=== PATIENT | male | born 1950 | race Caucasian/White ===

== ENCOUNTER 2016-09-08 06:17 | Inpatient (IN) | payer BC, OTHER ==
[2016-09-08] VITALS (7 sets, daily range): BP systolic 96–121; BP diastolic 65–75; PULSE 96–104; TEMP 36.7–37.4; O2SAT 92–97; Ht 177.8 cm; Wt 76.9 kg
[~2016-09-08] VITALS: Ht 177.8 cm; Wt 76.9 kg
[~2016-09-08 06:17] MED LIST: IBUP-103 PO; SIMV40TA2 PO; TIOTCAP INH
[2016-09-08] MEDS ORDERED: SODIUM CHLORIDE 0.9% 1000ML 1,000 ML IV STA ×2 (06:38→09:48)
[2016-09-08] MEDS ORDERED: FENTANYL CITRATE INJ 50 MCG/1 ML 2 ML VIAL IV STA (06:38)
[2016-09-08] MEDS ORDERED: LABETALOL HCL IV 5 MG/ML 20ML IV STA (06:38)
[2016-09-08] MEDS ORDERED: ONDANSETRON INJ 2 MG/ML 2 ML VIAL ONE ×3 (06:42→12:00)
[2016-09-08] MEDS ORDERED: OPTIRAY 320 IV PRN (06:45)
--- NOTE | 2016-09-08 06:52 | EMERGENCY ROOM VISIT NOTE ---
History Report prepared by Jami: Louis Lambert Under the Supervision of: Dr. Delma Borden M.D. First contact with patient: 06:37 Chief Complaint: ABDOMINAL PAIN Stated Complaint: ABDOMINAL PAIN Nursing Triage Summary: pt states he began to get abdominal pain that began this morning. reports decreased appetite and indigestion and diarrhea yesterday. pt denies urinary symptoms. pt restless in bed. states he is having a difficult time taking a deep breath due to pain. pt is alert and oriented x4. right side abdomen tender to touch. bowel sounds WNL. hx of AAA, dx last february. History of Present Illness The patient is a 66 year old male who presents to the Emergency Room with complaints of persistent abdominal pain that started 2 days ago. The patient notes that the pain worsened significantly today. Currently he rates his discomfort as a 9.5 out of 10 in severity but notes it is starting to subside slightly. Two days ago, the patient had a decreased appetite and diarrhea. The patient hasn't eaten since yesterday afternoon and did not eat much the last time he ate. He has been able to drink fluids including adis nasir, water, and coffee. He also complains of nausea, dry heaves and gas. The patient was diagnosed with an abdominal aorta aneurysm 6 months ago. It is being followed and watched and per patient has been holding steady and stable since the diagnosis. Source of History: patient Onset: 2 days ago Position: abdomen Symptom Intensity: 9.5/10 in severity Timing: worsening, other (persistent) Associated Symptoms: + diarrhea, + nausea, No hematochezia, No vomiting Note: Other associated symptoms: decreased appetite, dry heaves, gas Review of Systems See HPI for pertinent positives & negatives. A total of 10 systems reviewed and were otherwise negative. Past Medical & Surgical Medical Problems: (1) Aortic aneurysm (2) Perforation of duodenal ulcer Family History Cancer Kidney stone Social History Smoking Status: Current Every Day Smoker Marital Status: Housing Status: lives with significant other Occupation Status: employed Current/Historical Medications Scheduled Acetaminophen/Diphenhydramine (Tylenol Pm), 1 TAB PO HS Simvastatin (Zocor), 40 MG PO QPM Allergies Coded Allergies: No Known Allergies (Verified , 09/08/16) Physical Exam Vital Signs Date Time Temp Pulse Resp B/P Pulse Ox O2 Delivery O2 Flow Rate FiO2 09/08/16 12:33 97 12 2/1/17 12:33 98 12 174/104 100 09/08/16 12:31 172/90 09/08/16 12:28 91 16 09/08/16 12:28 36.5 106 16 178/105 98 Mask 12 09/08/16 12:28 92 16 172/100 99 09/08/16 10:45 36.7 104 18 162/79 90 Room Air 09/08/16 10:04 94 Room Air 09/08/16 10:02 97 22 180/97 94 Room Air 09/08/16 09:41 96 26 177/94 92 Room Air 09/08/16 09:24 102 09/08/16 09:17 88 18 153/77 94 Room Air 09/08/16 08:20 78 20 165/90 93 Room Air 09/08/16 07:56 81 26 180/102 96 Room Air 09/08/16 07:20 83 167/90 96 Room Air 09/08/16 07:06 88 18 188/105 97 Room Air 09/08/16 07:00 85 18 179/102 97 Room Air 201/94 09/08/16 06:53 163/85 09/08/16 06:41 85 09/08/16 06:22 36.5 99 22 155/87 98 Room Air Physical Exam Vital signs reviewed. General: Generally well-appearing in significant discomfort. HEENT: No scleral icterus, PERRLA, neck supple. Atraumatic. Cardiovascular: Notedly hypertensive, no extra sounds. Pulmonary: Clear to auscultation bilaterally, normal work of breathing. Abdomen: Diffusely tender with guarding, more focally tender to RUQ, nondistended, positive bowel sounds. Musculoskeletal: Atraumatic, no peripheral edema. Neurologic: Patient awake alert and oriented x 3 Skin: Warm, dry, no rash Medical Decision & Procedures ER Provider Diagnostic Interpretation: ADDENDUM Three-dimensional review of the images with the assistance of 2 additional radiologist suggest moderate gastric bubble thickening primarily in the region of the antrum and possibly components of the duodenal sweep. There is also suggestion of a possible small diverticulum transaxial image 163 involving the proximal transverse colon. Considerations include the possibility of a perforated colonic diverticulum versus perforated gastric and/or duodenal ulceration. Free air is felt to be present. Surgical consultation is suggested. IMPRESSION: Review of the images initially by 3 radiologist suggests the possibility of a perforated colonic diverticulum versus a potential gastric perforation of uncertain location. Surgical consultation is suggested. No further imaging is felt to be warranted Electronically signed by: Gerard Mckeon M.D. 09/08/2016 9:54 AM Dictated Date/Time: 09/08/2016 9:[address] results as stated below per my review and radiologist interpretation: ADDENDUM Review of the scan progressive Dr. Borden again shows a stable aneurysmal dilatation of the abdominal aorta. Bowel pattern is again nonobstructive. Initial concern for potential trace amount of free air anterior to the right hepatic lobe appears to be secondary to interposed transverse colonic loops based on three-dimensional evaluation. There is again no evidence pneumatosis. Gallbladder is negative for distention but there is suggestion of a trace amount of mild gallbladder wall thickening. This is most likely technical based on respiratory motion, although right upper quadrant ultrasonography is suggested as follow-up in several note is made of a trace amount of free fluid within the pelvic cul-de-sac. If the Patient remains symptomatic, repeat scanning with oral contrast would be helpful for definitive exclusion of any possibility of extraluminal micro air pockets of the upper abdomen Electronically signed by: Gerard Mckeon M.D. 09/08/2016 7:41 AM Dictated Date/Time: 09/08/2016 7:[address] angiogram abdomen and pelvis ANGIO ABD/PELVIS WITH CONTRAST CLINICAL HISTORY: Abdominal and pelvic pain TECHNIQUE: Transaxial acquisition with multi axial reformatted images. COMPARISON STUDY: Ultrasound abdominal aorta dated 07/23/2015 FINDINGS: Atelectasis right base. Lung bases otherwise are clear. Small fixed lateral hernia. Aneurysmal dilatation of the infrarenal aspect of the abdominal aorta extending to the aortic bifurcation. This has a maximum anterior posterior dimension of 4.0 cm. It is partially thrombus filled with true luminal dimension of 2.5 cm. There is no evidence for rupture. No abnormal periaortic fluid pockets are identified. Liver spleen and pancreas remain unremarkable. Kidneys negative for calcification or hydronephrosis. Bowel pattern overall is considered nonobstructive. There is considerable atherosclerotic change of the iliac arterial vasculature. No significant aneurysmal distention is present. Bladder is midline. There is again no evidence for an obstructing urinary tract calculus. Bowel pattern overall is nonobstructive. There is no evidence for pneumatosis. IMPRESSION: Partially thrombosed 4 cm aneurysm abdominal aorta. 2. True luminal dimension is 2.7 cm. 3. No evidence for dissection. 4. Nonobstructive bowel pattern. Electronically signed by: Gerard Mckeon M.D. 09/08/2016 7:22 AM Dictated Date/Time: 09/08/2016 7:12 AM Right upper quadrant ultrasound GALLBLADDER-ABD LIMITED CLINICAL HISTORY: upper abd pain, GB pain. Nausea. TECHNIQUE: Ultrasound COMPARISON STUDY: CT study same date FINDINGS: Gallbladder is normal. There are no shadowing gallstones. Common mild duct is 4 mm. Right kidney is negative for hydronephrosis. IMPRESSION: Negative study. Normal gallbladder. Electronically signed by: Gerard Mckeon M.D. 09/08/2016 8:57 AM Dictated Date/Time: 09/08/2016 8:46 AM CHEST ONE VIEW PORTABLE HISTORY: Generalized abdominal pain. Short of breath. COMPARISON: Abdomen and pelvis CT 09/08/2016. FINDINGS: There is confirmation of a pneumoperitoneum. The lungs are clear. The heart is normal in size. No pleural effusions. No pneumothorax. IMPRESSION: Confirmation of the pneumoperitoneum. This was discussed with Dr. Borden at 9:50 AM on 09/08/2016. Electronically signed by: Deven Hernandez M.D. 09/08/2016 9:51 AM Dictated Date/Time: 09/08/2016 9:43 AM Laboratory Results Test 09/08/16 06:39 09/08/16 06:40 09/08/16 06:47 09/08/16 07:54 Bedside Hemoglobin 16.0 g/dl (14.0-18.0) Bedside Hematocrit 47 % (42-52) Bedside Sodium 137 mEq/L (135-144) Bedside Potassium 3.9 mEq/L (3.3-5.0) Bedside Chloride 99 mEq/L (101-112) Bedside Total CO2 23 mEq/l (24-31) Bedside Blood Urea Nitrogen 16 mg/dl (7-18) Bedside Creatinine 1.1 mg/dl (0.6-1.3) Bedside Glucose (other) 142 mg/dl (70-99) Bedside Ionized Calcium (Yinka) 1.12 mmol/l (1.12-1.32) Est Creatinine Clear Calc Drug Dose 54.3 ml/min Magnesium Level 1.9 mg/dl (1.8-2.4) Direct Bilirubin 0.2 mg/dl (0-0.2) Lipase 77 U/L (73-393) Bedside Troponin I 0.010 ng/ml (0-0.045) Urine Color YELLOW Urine Appearance CLEAR (CLEAR) Urine pH 6.0 (4.5-7.5) Urine Specific [place] > 1.045 (1.000-1.030) Urine Protein NEG (NEG) Urine Glucose (UA) NEG (NEG) Urine Ketones 1+ (NEG) Urine Occult Blood 2+ (NEG) Urine Nitrite NEG (NEG) Urine Bilirubin NEG (NEG) Urine Urobilinogen NEG (NEG) Urine Leukocyte Esterase NEG (NEG) Urine WBC (Auto) 1-5 /hpf (0-5) Urine RBC (Auto) 5-10 /hpf (0-4) Urine Hyaline Casts (Auto) 1-5 /lpf (0-5) Urine Epithelial Cells (Auto) 5-10 /lpf (0-5) Urine Bacteria (Auto) NEG (NEG) Bedside Lactic Acid Venous 1.80 mmol/L (0.90-1.70) Laboratory results per my review. Medications Administered Medications (Trade) Dose Ordered Sig/Kamille Route Start Time Stop Time Status Last Admin Dose Admin Labetalol HCl (Normodyne IV) 10 mg NOW STAT IV 09/08/16 06:38 09/08/16 06:41 DC 09/08/16 06:52 10 MG Fentanyl Citrate 100 mcg 100 mcg NOW STAT IV 09/08/16 06:38 09/08/16 06:41 DC 09/08/16 06:48 100 MCG Sodium Chloride (Nss 1000ml) 1,000 ml @ 125 mls/hr Q8H STAT IV 09/08/16 06:38 09/08/16 14:37 DC 09/08/16 06:52 125 MLS/HR Ondansetron HCl (Zofran Inj) 4 mg STK-MED ONCE .ROUTE 09/08/16 06:42 09/08/16 06:43 DC 09/08/16 06:45 4 MG Hydromorphone HCl (Dilaudid Inj) 1 mg NOW STAT IV 09/08/16 07:45 09/08/16 07:47 DC 09/08/16 07:54 1 MG Hydromorphone HCl (Dilaudid Inj) 1 mg NOW STAT IV 09/08/16 09:07 09/08/16 09:09 DC 09/08/16 09:15 1 MG Piperacillin Sod/ Tazobactam Sod 4.5 gm 4.5 gm NOW STAT IV 09/08/16 09:48 09/08/16 09:50 DC 09/08/16 09:50 4.5 GM Sodium Chloride (Nss 1000ml) 1,000 ml @ 999 mls/hr Q1H1M STAT IV 09/08/16 09:48 09/08/16 10:48 DC 09/08/16 09:50 999 MLS/HR Hydromorphone HCl (Dilaudid Inj) 1 mg NOW STAT IV 09/08/16 10:10 09/08/16 10:12 DC 09/08/16 10:17 1 MG Metronidazole (Flagyl / Nss) 500 mg NOW STAT IV 09/08/16 10:10 09/08/16 10:12 DC 09/08/16 10:16 500 MG Cefazolin Sodium (Ancef 2000mg/60 ml D5W) 2,000 mg STK-MED ONCE IV 09/08/16 11:02 09/08/16 11:04 DC 09/08/16 11:21 2,000 MG Hydromorphone HCl (Dilaudid Inj) 0.5 mg Q5M PRN IV 09/08/16 11:15 09/08/16 16:15 DC 09/08/16 13:12 0.5 MG Lidocaine HCl (Xylocaine 1% Inj (Local)) 20 ml ONE ONCE INJ 09/08/16 12:20 09/08/16 12:23 DC 09/08/16 12:20 20 ML Bupivacaine HCl (Marcaine 0.5% MPF Inj) 20 ml ONE ONCE INJ 09/08/16 12:20 09/08/16 12:23 DC 09/08/16 12:20 20 ML Vancomycin HCl (Vancomycin Inj) 2,000 mg ONE ONCE IR 09/08/16 12:29 09/08/16 12:32 DC 09/08/16 12:14 2,000 MG Neomycin/ Polymyxin/ Bacitracin (Triple Antibiotic Oint) 1 appln ONE ONCE TOP 09/08/16 12:33 09/08/16 12:34 DC 09/08/16 12:14 1 APPLN ECG Indication: abdominal pain Rate (beats per minute): 90 Rhythm: sinus rhythm Findings: no acute ischemic change, no ectopy, other (qtc [id number]) ED Course 0634: Past medical records reviewed. The patient was evaluated in room A3. A complete history and physical examination was performed. 0638: Ordered NSS 1000 ml @ 125 mls/hr IV, Fentanyl Inj 100 mcg IV, Labetalol HCl 10 mg IV. 0642: Ordered Zofran Inj 4 mg .ROUTE. 0645: Ordered Ioversol 100 ml IV/interaction checking. 0745: Ordered Dilaudid Inj 1 mg IV. 0901: At this time, I reevaluated the patient and he is resting. I informed the patient that he is going for another CT scan. 0907: Ordered Dilaudid Inj 1 mg IV. 0948: Ordered Zosyn Iv 4.5 gm IV. 1008: At this time, I discussed the patient's case with Dr. Horton - General Surgery [facility] and he agreed to accept the patient for further evaluation. 1010: Ordered Metronidazole 500 mg IV, Dilaudid Inj 1 mg IV. Medical Decision Differential diagnosis: Etiologies such as appendicitis, diverticulitis, PUD, biliary pathology, UTI, pancreatitis, obstruction, mesenteric ischemia, aortic pathology, triple A, infections, inflammatory bowel disease, renal colic, as well as others were entertained. This pt was evaluated and appeared to be in significant distress. IV access was obtained and lab work was drawn. Pt was placed on the vp organizational development. IVF were initiated and pt was given IV dilaudid and zofran. CT scan abd/pelvis was performed to evaluate the AAA which appears to be stable. RUQ appears to be in question, therefore an u/s was performed and is negative. Reevaluation of the patient indicates significant pain. CXR was performed and reveals FA in abd. CT abd with oral contrast was cancelled and surgical consultation was placed. Pt was given IV zosyn 4.[address] Horton evaluated the pt at the bedside and requested IV flagyl as well. Pt is aware of the plan for operative management and agrees. Consults Time Called: 1002 Consulting Physician: Dr. Horotn - General Surgery [facility] Returned Call: [phone] At this time, I discussed the patient's case with Dr. Horton and he agreed to accept the patient for further evaluation. Impression Primary Impression: Perforated viscus Scribe Attestation The scribe's documentation has been prepared under my direction and personally reviewed by me in its entirety. I confirm that the note above accurately reflects all work, treatment, procedures, and medical decision making performed by me. Departure Information Dispostion Being Evaluated By Hospitalist Lalito Warren M.D. (PCP)
[2016-09-08 06:55] LABS: BASO % 0.2 %; BASO ABS # 0.03 K/uL (0-0.2); COMPLETE YES; EOS % 0.4 %; HEMATOCRIT 46.2 % (42-52); IG% 0.2 %; LYMPH % 22.3 %; LYMPH ABS # 2.99 K/uL (1.2-3.4); MEAN CELL VOLUME 89.7 fL (80-100); MEAN CORPUSCULAR HGB CONC 35.7 g/dl (32-36); MEAN PLATELET VOLUME 9.8 fL (7.4-10.4); NEUT % 69.9 %; PLATELET COUNT 237 K/uL (130-400); RED BLOOD COUNT 5.15 M/uL (4.7-6.1); WHITE BLOOD COUNT 13.42 K/uL (4.8-10.8)
[2016-09-08 06:57] LABS: ISTAT CREATININE 1.1 mg/dl (0.6-1.3); ISTAT IONIZED CALCIUM 1.12 mmol/l (1.12-1.32)
[2016-09-08 07:09] LABS: BUN/CREATININE RATIO 10.8 (10-20); CALCIUM 9.2 mg/dl (8.5-10.1); CREATININE 1.4 mg/dl (0.60-1.40); MAGNESIUM 1.9 mg/dl (1.8-2.4); POTASSIUM 3.8 mmol/L (3.5-5.1)
--- NOTE | 2016-09-08 07:24 | DIAGNOSTIC IMAGING REPORT ---
ADDENDUM Three-dimensional review of the images with the assistance of 2 additional radiologist suggest moderate gastric bubble thickening primarily in the region of the antrum and possibly components of the duodenal sweep. There is also suggestion of a possible small diverticulum transaxial image 163 involving the proximal transverse colon. Considerations include the possibility of a perforated colonic diverticulum versus perforated gastric and/or duodenal ulceration. Free air is felt to be present. Surgical consultation is suggested. IMPRESSION: Review of the images initially by 3 radiologist suggests the possibility of a perforated colonic diverticulum versus a potential gastric perforation of uncertain location. Surgical consultation is suggested. No further imaging is felt to be warranted Electronically signed by: Gerard Mckeon M.D. 09/08/2016 9:54 AM Dictated Date/Time: 09/08/2016 9:52 AM ADDENDUM Review of the scan progressive Dr. Borden again shows a stable aneurysmal dilatation of the abdominal aorta. Bowel pattern is again nonobstructive. Initial concern for potential trace amount of free air anterior to the right hepatic lobe appears to be secondary to interposed transverse colonic loops based on three-dimensional evaluation. There is again no evidence pneumatosis. Gallbladder is negative for distention but there is suggestion of a trace amount of mild gallbladder wall thickening. This is most likely technical based on respiratory motion, although right upper quadrant ultrasonography is suggested as follow-up in several note is made of a trace amount of free fluid within the pelvic cul-de-sac. If the Patient remains symptomatic, repeat scanning with oral contrast would be helpful for definitive exclusion of any possibility of extraluminal micro air pockets of the upper abdomen Electronically signed by: Gerard Mckeon M.D. 09/08/2016 7:41 AM Dictated Date/Time: 09/08/2016 7:[address] angiogram abdomen and pelvis ANGIO ABD/PELVIS WITH CONTRAST CLINICAL HISTORY: Abdominal and pelvic pain TECHNIQUE: Transaxial acquisition with multi axial reformatted images. COMPARISON STUDY: Ultrasound abdominal aorta dated 07/23/2015 FINDINGS: Atelectasis right base. Lung bases otherwise are clear. Small fixed lateral hernia. Aneurysmal dilatation of the infrarenal aspect of the abdominal aorta extending to the aortic bifurcation. This has a maximum anterior posterior dimension of 4.0 cm. It is partially thrombus filled with true luminal dimension of 2.5 cm. There is no evidence for rupture. No abnormal periaortic fluid pockets are identified. Liver spleen and pancreas remain unremarkable. Kidneys negative for calcification or hydronephrosis. Bowel pattern overall is considered nonobstructive. There is considerable atherosclerotic change of the iliac arterial vasculature. No significant aneurysmal distention is present. Bladder is midline. There is again no evidence for an obstructing urinary tract calculus. Bowel pattern overall is nonobstructive. There is no evidence for pneumatosis. IMPRESSION: Partially thrombosed 4 cm aneurysm abdominal aorta. 2. True luminal dimension is 2.7 cm. 3. No evidence for dissection. 4. Nonobstructive bowel pattern. Electronically signed by: Gerard Mckeon M.D. 09/08/2016 7:22 AM Dictated Date/Time: 09/08/2016 7:12 AM
[2016-09-08] MEDS ORDERED: HYDROmorphone INJ 1 MG/ML SYR IV STA ×3 (07:45→10:10)
[2016-09-08 08:22] LABS: URINE APPEARANCE CLEAR (CLEAR); URINE BILIRUBIN NEG (NEG); URINE COLOR YELLOW; URINE NITRITE NEG (NEG); URINE SPECIFIC GRAVITY > 1.045 (1.000-1.030); UROBILINOGEN NEG (NEG); ZZUR CULT IF INDIC CLEAN CATCH NO
[2016-09-08 08:29] LABS: MANUAL MICROSCOPIC REQUIRED? NO; REVIEW REQ? NO
--- NOTE | 2016-09-08 08:58 | DIAGNOSTIC IMAGING REPORT ---
Right upper quadrant ultrasound GALLBLADDER-ABD LIMITED CLINICAL HISTORY: upper abd pain, GB pain. Nausea. TECHNIQUE: Ultrasound COMPARISON STUDY: CT study same date FINDINGS: Gallbladder is normal. There are no shadowing gallstones. Common mild duct is 4 mm. Right kidney is negative for hydronephrosis. IMPRESSION: Negative study. Normal gallbladder. Electronically signed by: Gerard Mckeon M.D. 09/08/2016 8:57 AM Dictated Date/Time: 09/08/2016 8:46 AM
[2016-09-08] MEDS ORDERED: PIPERACILLIN/TAZOBACTAM 4.5 GM/100ML D5W IV STA (09:48)
--- NOTE | 2016-09-08 09:52 | DIAGNOSTIC IMAGING REPORT ---
CHEST ONE VIEW PORTABLE HISTORY: Generalized abdominal pain. Short of breath. COMPARISON: Abdomen and pelvis CT 09/08/2016. FINDINGS: There is confirmation of a pneumoperitoneum. The lungs are clear. The heart is normal in size. No pleural effusions. No pneumothorax. IMPRESSION: Confirmation of the pneumoperitoneum. This was discussed with Dr. Borden at 9:50 AM on 09/08/2016. Electronically signed by: Deven Hernandez M.D. 09/08/2016 9:51 AM Dictated Date/Time: 09/08/2016 9:43 AM
[2016-09-08] MEDS ORDERED: METRONIDAZOLE 500MG / 100ML NSS IV STA (10:10)
--- NOTE | 2016-09-08 10:23 | History and Physical ---
History & Physical Date & Time of Service: Sep 08, 2016 at 10:11 Chief Complaint: Abdominal Pain Primary Care Physician: Lalito Pringle M.D. History of Present Illness Source: patient, spouse pt is a 66 year old male who presents with 2 days history abdominal pain and diarrhea, pt started have severe epigastric pain 4 hours ago, with nausea, no vomiting, pt denies fever, no chest pain, Family History Cancer Kidney stone Social History Smoking Status: Current Every Day Smoker Alcohol Use: occasionally Drug Use: none Marital Status: Occupational Status: employed Allergies Coded Allergies: No Known Allergies (Unverified , 09/08/16) Home Medications Scheduled Simvastatin (Zocor), 40 MG PO QPM Review of Systems Constitutional: No chills, No fatigue, No fever, No problem reported, No sweats , No weakness, No weight loss Eyes: No diplopia, No discharge, No eye pain, No problem reported, No redness, No worsening of vision ENT: No dental problems, No hearing loss, No nasal symptoms, No problem reported, No sore throat, No tinnitus, No trouble swallowing, No unusual epistaxis Respiratory: No cough, No dyspnea at rest, No dyspnea on exertion, No hemoptysis, No problem reported, No shortness of breath, No sputum, No wheezing Cardiovascular: No PND, No chest pain, No claudication, No edema, No orthopnea , No palpitations, No problem reported Abdomen: + diarrhea, + nausea, + pain Musculoskeletal: No calf pain, No joint pain, No muscle pain, No problem reported, No swelling Genitourinary - Male: No dysuria, No hematuria, No impotence, No lesions, No penile discharge, No problem reported, No urinary frequency, No urinary hesitancy, No urinary incontinence, No urinary retention, No urinary urgency Neurologic: No balance problems, No memory loss, No numbness/tingling, No paralysis, No problem reported, No vertigo, No weakness Psychiatric: No anhedonism, No anxiety, No depression symptoms, No insomnia, No problem reported, No substance abuse Endocrine: No excessive thirst, No excessive urination, No fatigue, No problem reported Hematologic / Lymphatic: No abnormal bleeding/bruising, No clotting problems, No night sweats, No problem reported, No swollen lymph nodes Physical Exam Vital Signs Date Time Temp Pulse Resp B/P Pulse Ox O2 Delivery O2 Flow Rate FiO2 09/08/16 10:04 94 Room Air 09/08/16 10:02 97 22 180/97 94 Room Air 09/08/16 09:41 96 26 177/94 92 Room Air 09/08/16 09:24 102 09/08/16 09:17 88 18 153/77 94 Room Air 09/08/16 08:20 78 20 165/90 93 Room Air 09/08/16 07:56 81 26 180/102 96 Room Air 09/08/16 07:20 83 167/90 96 Room Air 09/08/16 07:06 88 18 188/105 97 Room Air 09/08/16 07:00 85 18 179/102 97 Room Air 201/94 09/08/16 06:53 163/85 09/08/16 06:41 85 09/08/16 06:22 36.5 99 22 155/87 98 Room Air General Appearance: WD/WN Head: normocephalic Eyes: normal inspection ENT: normal ENT inspection Neck: supple, no adenopathy, no JVD Respiratory/Chest: chest non-tender, lungs clear, normal breath sounds Cardiovascular: regular rate, rhythm, no edema, no gallop, no JVD Abdomen/GI: + tenderness, + guarding, + rebound Back: normal inspection Extremities/Musculoskelatal: normal inspection, no calf tenderness, normal capillary refill 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, no motor/sensory deficits Skin: normal color, warm/dry, no rash Diagnostics Laboratory Results Results Past 24 Hours Test 09/08/16 06:39 09/08/16 06:40 09/08/16 06:47 09/08/16 07:54 Range/Units Bedside Hemoglobin 16.0 14.0-18.0 g/dl Bedside Hematocrit 47 42-52 % Bedside Sodium 137 135-144 mEq/L Bedside Potassium 3.9 3.3-5.0 mEq/L Bedside Chloride 99 101-112 mEq/L Bedside Total CO2 23 24-31 mEq/l Anion Gap 20.0 15.0 3-11 mmol/L Bedside Blood Urea Nitrogen 16 7-18 mg/dl Bedside Creatinine 1.1 0.6-1.3 mg/dl Bedside Glucose (other) 142 70-99 mg/dl Bedside Ionized Calcium ([place]) 1.12 1.12-1.32 mmol/l White Blood Count 13.42 4.8-10.8 K/uL Red Blood Count 5.15 4.7-6.1 M/uL Hemoglobin 16.5 14.0-18.0 g/dL Hematocrit 46.2 42-52 % Mean Corpuscular Volume 89.7 80-100 fL Mean Corpuscular Hemoglobin 32.0 25-34 pg Mean Corpuscular Hemoglobin Concent 35.7 32-36 g/dl Platelet Count 237 130-400 K/uL Mean Platelet Volume 9.8 7.4-10.4 fL Neutrophils (%) (Auto) 69.9 % Lymphocytes (%) (Auto) 22.3 % Monocytes (%) (Auto) 7.0 % Eosinophils (%) (Auto) 0.4 % Basophils (%) (Auto) 0.2 % Neutrophils # (Auto) 9.37 1.4-6.5 K/uL Lymphocytes # (Auto) 2.99 1.2-3.4 K/uL Monocytes # (Auto) 0.94 0.11-0.59 K/uL Eosinophils # (Auto) 0.06 0-0.5 K/uL Basophils # (Auto) 0.03 0-0.2 K/uL RDW Standard Deviation 43.9 36.4-46.3 fL RDW Coefficient of Variation 13.2 11.5-14.5 % Immature Granulocyte % (Auto) 0.2 % Immature Granulocyte # (Auto) 0.03 0.00-0.02 K/uL Sodium Level 138 136-145 mmol/L Potassium Level 3.8 3.5-5.1 mmol/L Chloride Level 101 98-107 mmol/L Carbon Dioxide Level 22 21-32 mmol/L Blood Urea Nitrogen 15 7-18 mg/dl Creatinine 1.40 0.60-1.40 mg/dl Est Creatinine Clear Calc Drug Dose 54.3 ml/min Estimated GFR () 60.7 Estimated GFR (Non- 52.4 BUN/Creatinine Ratio 10.8 10-20 Random Glucose 134 70-99 mg/dl Calcium Level 9.2 8.5-10.1 mg/dl Magnesium Level 1.9 1.8-2.4 mg/dl Total Bilirubin 0.6 0.2-1 mg/dl Direct Bilirubin 0.2 0-0.2 mg/dl Aspartate Amino Transf (AST/SGOT) 22 15-37 U/L Alanine Aminotransferase (ALT/SGPT) 29 12-78 U/L Alkaline Phosphatase 61 45-117 U/L Total Protein 7.8 6.4-8.2 gm/dl Albumin 4.0 3.4-5.0 gm/dl Lipase 77 73-393 U/L Bedside Troponin I 0.010 0-0.045 ng/ml Urine Color YELLOW Urine Appearance CLEAR CLEAR Urine pH 6.0 4.5-7.5 Urine Specific [place] > 1.045 1.000-1.030 Urine Protein NEG NEG Urine Glucose (UA) NEG NEG Urine Ketones 1+ NEG Urine Occult Blood 2+ NEG Urine Nitrite NEG NEG Urine Bilirubin NEG NEG Urine Urobilinogen NEG NEG Urine Leukocyte Esterase NEG NEG Urine WBC (Auto) 1-5 0-5 /hpf Urine RBC (Auto) 5-10 0-4 /hpf Urine Hyaline Casts (Auto) 1-5 0-5 /lpf Urine Epithelial Cells (Auto) 5-10 0-5 /lpf Urine Bacteria (Auto) NEG NEG Bedside Lactic Acid Venous 1.80 0.90-1.70 mmol/L Diagnostic Radiology CXR-IMPRESSION: Confirmation of the pneumoperitoneum. This was discussed with Dr. Borden at 9:50 AM on 09/08/2016. CTA-IMPRESSION: Review of the images initially by 3 radiologist suggests the possibility of a perforated colonic diverticulum versus a potential gastric perforation of uncertain location. Surgical consultation is suggested. No further imaging is felt to be warranted Impression Assessment and Plan IMP pneumoperitoneum. peritonitis ( general). possible perforation of duodenal ulcer or gastric ulcer, or colon Plan: I recommend to do emergent expolarotory laparotomy, possible bowel resection or stoma, D/W benefits, risks and alternatives of the procedure, the risks- infection, bleeding, sepsis, DVT, NE, stroke, incisional hernia, , pt and his understood, he signed consent, I answered all questions, IV fluid, zosyn + flagyl ASA Classification: ASA Class II Level of Care Med/Surg Resuscitation Status FULL RESUSCITATION VTE Prophylaxis Given or contraindicated: SCD's
[2016-09-08] MEDS ORDERED: MIDAZOLAM HCL 1 MG/ML 2ML VIAL ONE (10:37)
[2016-09-08] MEDS ORDERED: PROPOFOL IV EMULSION 10 MG/ML 20 ML VIAL IV ONE (10:37)
[2016-09-08] MEDS ORDERED: FENTANYL CITRATE INJ 50 MCG/1 ML 2 ML VIAL ONE (10:37)
[2016-09-08] MEDS ORDERED: NEOSTIGMINE METHYLSULFATE 5 MG/5 ML SYR ONE (10:37)
[2016-09-08] MEDS ORDERED: GLYCOPYRROLATE INJ 0.2 MG/ML VIAL ONE (10:37)
[2016-09-08] MEDS ORDERED: ROCURONIUM BROMIDE 10 MG/ML 5 ML VIAL ONE (10:37)
[2016-09-08] MEDS ORDERED: LIDOCAINE HCL 2% 2 ML VIAL (20MG/ML) ONE (10:37)
[2016-09-08] MEDS ORDERED: DIPH-437 PO (10:44)
[2016-09-08] MEDS ORDERED: CEFAZOLIN IV 2,000 MG/60 ML D5W IV ONE (11:02)
[2016-09-08] MEDS ORDERED: EpHEDrine SULFATE INJ 50 MG/ML AMP IV PRN (11:15)
[2016-09-08] MEDS ORDERED: ONDANSETRON INJ 2 MG/ML 2 ML VIAL IV PRN ×2 (11:15→12:45)
[2016-09-08] MEDS ORDERED: PHENYLEPHRINE 100MCG/ML 5ML SYR IV PRN (11:15)
[2016-09-08] MEDS ORDERED: ATROPINE SULFATE 0.1 MG/ML 5ML SYR IV PRN (11:15)
[2016-09-08] MEDS ORDERED: PHENYLEPHRINE 100MCG/ML 5ML SYR ONE (11:28)
[2016-09-08] MEDS ORDERED: HYDROmorphone INJ 2 MG/ML SYR/VIAL ONE (11:43)
[2016-09-08] MEDS ORDERED: SODIUM CHLORIDE 0.9% INJ 10 ML VIAL ONE (11:43)
[2016-09-08] MEDS ORDERED: SUCCINYLCHOLINE CHLORIDE 20 MG/ML 10 ML VIAL IV ONE (12:01)
[2016-09-08] MEDS ORDERED: DEXAMETHASONE SOD INJ 4 MG/ML VIAL ONE (12:01)
[2016-09-08] MEDS ORDERED: BUPIVACAINE 0.5 % 5 MG/1 ML MPF 30ML VIAL INJ ONE (12:20)
[2016-09-08] MEDS ORDERED: LIDOCAINE HCL 1% 20 ML VIAL INJ ONE (12:20)
[2016-09-08] MEDS ORDERED: VANCOMYCIN HCL 1000MG/20ML VIAL IR ONE (12:29)
[2016-09-08] MEDS ORDERED: TRIPLE ANTIBIOTIC TOP ONE (12:33)
[2016-09-08] MEDS ORDERED: ESMOLOL HCL 10 MG/ML 10 ML VIAL ONE (12:34)
--- NOTE | 2016-09-08 12:40 | [facility] Post Operative Brief Note ---
Immediate Operative Summary Operative Date Sep 08, 2016. Pre-Operative Diagnosis Peritonitis, pneumoperitoneum Post-Operative Diagnosis perforated duodenal ulcer Procedure(s) Performed exploratory laparotomy, repair of perforated duodenal ulcer with omental patch Surgeon Dr. Horton Art Therapy Specialist Surgeon(s) Keli Garcia PA-C Estimated Blood Loss 10 Findings perforation of duodenal ulcer, peritonitis, pneumoperitoneum Fluids (cc crystalloids) 1200ml Specimens none Drains NATY x1 Anesthesia General Complication(s) None Disposition Recovery Room / PACU
[2016-09-08] MEDS ORDERED: HYDROmorphone INJ 1 MG/ML SYR IV PRN (12:45)
[2016-09-08] MEDS: HYDROmorphone INJ 2 MG/ML SYR/VIAL IV PRN ×5 (12:46→13:12)
--- NOTE | 2016-09-08 13:52 | OPERATIVE REPORT ---
DATE OF OPERATION: 09/08/2016 PREOPERATIVE DIAGNOSES: Pneumoperitoneum, peritonitis, possible perforation of the duodenal ulcer. POSTOPERATIVE DIAGNOSES: Same. OPERATION: Emergent exploratory laparotomy, repair perforation of the duodenal ulcer with omental patch, NATY drainage x1. SURGEON: Dr. Joao Horton. ANESTHESIA: General. ESTIMATED BLOOD LOSS: About 10 mL. IV FLUIDS: 1200 mL. DRAINS: NATY drainage x1. FINDINGS: Pneumoperitoneum, peritonitis, perforation duodenal ulcer. COMPLICATIONS: None. INDICATIONS FOR THE PROCEDURE: This is a 66-year-old gentleman who presented to the ED with 2-day history of abdominal pain, diarrhea; however, the patient had severe epigastric pain about 4 hours ago, came to the ED with severe epigastric pain. The patient had a chest x-ray shows free pneumoperitoneum. I did the history and physical exam on the patient and diagnosis is pneumoperitoneum, repair of peritonitis, possible perforation duodenal ulcer. I recommended to do an emergent exploratory laparotomy, possible colon resection, and possible stomal. I did talk to the patient and patient's about the benefit and risk, alternate procedure. I indicated the risks may include but not limited such as bleeding, infection, abscess, incisional hernia, myocardial infarction, DVT, stroke and even . They understand. They are agreed to proceed with the procedure. The patient signed informed consent. I answered all questions. DETAILS OF PROCEDURE: We brought the patient to the OR, put the patient in the supine position. The patient received SCD on bilateral legs to prevent DVT. Also, the patient received Hernandez catheter insertion in the bladder for monitor urine output and patient received 2 grams Ancef IV for prophylactic antibiotic. The patient received general anesthesia without difficulty. The abdomen was prepped and draped in routine sterile fashion. After time out I made a midline incision just above umbilical, opened fascia, opened peritoneum under direct vision, found the patient has pneumoperitoneum and peritonitis and then we found the patient had duodenal ulcer perforation duodenal ulcer perforation The perforation size about a 0.6 cm x 0.6 cm. At this moment, I used 2-0 Vicryl [id number] to close the duodenal ulcer perforation primarily x2. Then we tied the omental patch over the perforation site and rechecked no leak, no active bleeding and then explored the abdomen, shows no more findings on the liver, stomach, rest of small bowel, large bowel and the patient has some free fluid on the pelvic area, so we suction, also we used 2 liter normal saline with 2 gram of vancomycin warm saline, irrigated his abdomen then we suctioned all the irrigation normal saline. Then I put the 7 mm NATY drain on the pelvic area, used 2-0 silk to fix the NATY to skin and rechecked the abdomen. No injury to bowel, no active bleeding. Then I closed the abdominal fascial layer by using #1 PDS continuous running, closed subcutaneous layer by using 2-0 Vicryl, closed skin by using stapler, then we put the dressing on. The patient tolerated the procedure well. All the instruments, needle and sponge count correct x2 at the end of case. Also, before we closed the incision injection the local anesthesia by using 1% lidocaine mixed with 0.25% Marcaine around the incision. Then the patient transported to recovery room in stable condition. After the procedure, I did talk to the patient's about the OR finding procedure we did. She understands. I attest to the content of the Intraoperative Record and any orders documented therein. Any exceptions are noted below. ASHER
[2016-09-08] MEDS ORDERED: PIPERACILL/TAZOBAC CONSULT ACTIVE PRN (14:00)
--- NOTE | 2016-09-08 14:09 | Anesthesiology Progress Note ---
Anesthesia Post Op Note Date & Time Sep 08, 2016 at 14:09 Vital Signs Pain Intensity: 5 Vital Signs Past 12 Hours Date Time Temp Pulse Resp B/P Pulse Ox O2 Delivery O2 Flow Rate FiO2 09/08/16 13:45 83 16 09/08/16 13:45 37.2 82 12 123/3 95 Nasal Cannula 4 09/08/16 13:45 83 16 96 09/08/16 13:43 123/73 09/08/16 13:40 85 9 09/08/16 13:40 86 9 95 09/08/16 13:38 130/77 09/08/16 13:35 86 11 95 09/08/16 13:35 89 11 09/08/16 13:33 121/76 09/08/16 13:30 101 15 09/08/16 13:30 94 15 96 09/08/16 13:29 91 16 09/08/16 13:29 92 16 94 09/08/16 13:28 137/83 09/08/16 13:24 93 20 95 09/08/16 13:24 94 20 09/08/16 13:23 130/73 09/08/16 13:19 100 17 09/08/16 13:19 100 17 95 09/08/16 13:18 146/84 09/08/16 13:14 96 18 09/08/16 13:14 96 18 96 09/08/16 13:13 152/81 09/08/16 13:09 98 16 92 09/08/16 13:09 96 16 09/08/16 13:08 156/86 09/08/16 13:04 97 18 93 09/08/16 13:04 97 18 09/08/16 13:03 161/89 09/08/16 12:59 99 18 09/08/16 12:59 100 18 92 09/08/16 12:58 95 16 09/08/16 12:58 98 16 165/92 98 09/08/16 12:53 95 14 09/08/16 12:53 98 14 172/83 09/08/16 12:48 95 15 171/97 100 09/08/16 12:48 96 15 09/08/16 12:43 100 20 173/95 92 09/08/16 12:43 97 20 09/08/16 12:41 169/93 09/08/16 12:39 169/93 09/08/16 12:38 100 18 172/100 100 09/08/16 12:38 100 18 09/08/16 12:33 97 12 09/08/16 12:33 98 12 174/104 100 09/08/16 12:31 172/90 09/08/16 12:28 91 16 09/08/16 12:28 36.5 106 16 178/105 98 Mask 12 09/08/16 12:28 92 16 172/100 99 09/08/16 10:45 36.7 104 18 162/79 90 Room Air 09/08/16 10:04 94 Room Air 09/08/16 10:02 97 22 180/97 94 Room Air 09/08/16 09:41 96 26 177/94 92 Room Air 09/08/16 09:24 102 09/08/16 09:17 88 18 153/77 94 Room Air 09/08/16 08:20 78 20 165/90 93 Room Air 09/08/16 07:56 81 26 180/102 96 Room Air 09/08/16 07:20 83 167/90 96 Room Air 09/08/16 07:06 88 18 188/105 97 Room Air 09/08/16 07:00 85 18 179/102 97 Room Air 201/94 09/08/16 06:53 163/85 09/08/16 06:41 85 09/08/16 06:22 36.5 99 22 155/87 98 Room Air Notes Mental Status: alert / awake / arousable, participated in evaluation Pt Amnestic to Procedure: Yes Nausea / Vomiting: adequately controlled Pain: adequately controlled Airway Patency, RR, SpO2: stable & adequate BP & HR: stable & adequate Hydration State: stable & adequate Anesthetic Complications: no major complications apparent
[2016-09-08] MEDS: D5W AND 1/2NSS + 20MEQ KCL 1,000 ML IV SCH (15:12)
[2016-09-08] MEDS: PIPERACILL/TAZOBAC IV 3.375 GM in DEXTROSE 5% 100ML IV SCH (16:17)
[2016-09-08] MEDS ORDERED: PIPERACILL/TAZOBAC IV 3.375 GM in DEXTROSE 5% 100ML 100 ML IV SCH (18:00)
[2016-09-08] MEDS: HYDROmorphone INJ 1 MG/ML SYR IV PRN (20:01)
[2016-09-08] MEDS: PANTOprazole INJ 40 MG in SYRINGE 0 ML IV SCH (20:49)
[2016-09-09] MEDS: PIPERACILL/TAZOBAC IV 3.375 GM in DEXTROSE 5% 100ML IV SCH ×3 (00:15→15:37)
[2016-09-09] MEDS: HYDROmorphone INJ 1 MG/ML SYR IV PRN ×6 (00:15→18:49)
[2016-09-09] MEDS: D5W AND 1/2NSS + 20MEQ KCL 1,000 ML IV SCH ×3 (00:46→19:49)
[2016-09-09 03:27] VITALS: BP 109/67; PULSE 102; TEMP 37.5; O2SAT 92
[2016-09-09] MEDS ORDERED: CEFAZOLIN IV 2,000 MG/60 ML D5W IV ONE (06:00)
[2016-09-09 06:42] LABS: BASO % 0.1 %; BASO ABS # 0.01 K/uL (0-0.2); COMPLETE YES; HEMATOCRIT 41.8 % (42-52); IG% 0.3 %; LYMPH % 11.3 %; LYMPH ABS # 2.06 K/uL (1.2-3.4); MEAN CELL VOLUME 90.5 fL (80-100); MEAN CORPUSCULAR HEMOGLOBIN 31.2 pg (25-34); MEAN CORPUSCULAR HGB CONC 34.4 g/dl (32-36); MEAN PLATELET VOLUME 9.8 fL (7.4-10.4); NEUT % 82.3 %; PLATELET COUNT 187 K/uL (130-400); RED BLOOD COUNT 4.62 M/uL (4.7-6.1); WHITE BLOOD COUNT 18.27 K/uL (4.8-10.8)
[2016-09-09 07:59] VITALS: BP 128/74; PULSE 108; TEMP 36.5; O2SAT 90
--- NOTE | 2016-09-09 08:07 | Surgery Progress Note ---
Surgery Progress Note Date of Service Sep 09, 2016. Subjective Post OP Day: 1 + feeling well F/U S/P exp lap repair duodenal ulcer perforation, pt is stable, NGT is working , minimal, pt denies N/V, good control pain, Objective Vital Signs: Date Time Temp Pulse Resp B/P Pulse Ox O2 Delivery O2 Flow Rate FiO2 09/09/16 03:27 37.5 102 16 109/67 92 Room Air 09/09/16 00:00 Room Air 09/08/16 23:15 37.4 104 16 110/65 92 Room Air 09/08/16 19:00 36.8 96 18 108/70 95 Nasal Cannula 4.0 09/08/16 17:01 36.8 100 16 96/66 94 Nasal Cannula 4.0 09/08/16 16:00 36.7 100 18 121/75 97 Nasal Cannula 2.0 09/08/16 15:27 Nasal Cannula 2.0 09/08/16 14:55 36.9 103 18 107/65 95 Nasal Cannula 4.0 09/08/16 14:30 36.7 98 16 107/71 94 Nasal Cannula 2.0 09/08/16 14:00 Nasal Cannula 2.0 09/08/16 14:00 Nasal Cannula 2.0 09/08/16 14:00 36.9 99 16 102/65 94 Nasal Cannula 2.0 09/08/16 13:45 83 16 09/08/16 13:45 37.2 82 12 123/3 95 Nasal Cannula 4 09/08/16 13:45 83 16 96 09/08/16 13:43 123/73 09/08/16 13:40 85 9 09/08/16 13:40 86 9 95 09/08/16 13:38 130/77 09/08/16 13:35 86 11 95 09/08/16 13:35 89 11 09/08/16 13:33 121/76 09/08/16 13:30 101 15 09/08/16 13:30 94 15 96 09/08/16 13:29 91 16 09/08/16 13:29 92 16 94 09/08/16 13:28 137/83 09/08/16 13:24 93 20 95 09/08/16 13:24 94 20 09/08/16 13:23 130/73 09/08/16 13:19 100 17 09/08/16 13:19 100 17 95 09/08/16 13:18 146/84 09/08/16 13:14 96 18 09/08/16 13:14 96 18 96 09/08/16 13:13 152/81 09/08/16 13:09 98 16 92 09/08/16 13:09 96 16 09/08/16 13:08 156/86 09/08/16 13:04 97 18 93 09/08/16 13:04 97 18 09/08/16 13:03 161/89 09/08/16 12:59 99 18 09/08/16 12:59 100 18 92 09/08/16 12:58 95 16 09/08/16 12:58 98 16 165/92 98 09/08/16 12:53 95 14 09/08/16 12:53 98 14 172/83 09/08/16 12:48 95 15 171/97 100 09/08/16 12:48 96 15 09/08/16 12:43 100 20 173/95 92 09/08/16 12:43 97 20 09/08/16 12:41 169/93 09/08/16 12:39 169/93 09/08/16 12:38 100 18 172/100 100 09/08/16 12:38 100 18 09/08/16 12:33 97 12 09/08/16 12:33 98 12 174/104 100 09/08/16 12:31 172/90 09/08/16 12:28 91 16 09/08/16 12:28 36.5 106 16 178/105 98 Mask 12 09/08/16 12:28 92 16 172/100 99 09/08/16 10:45 36.7 104 18 162/79 90 Room Air 09/08/16 10:04 94 Room Air 09/08/16 10:02 97 22 180/97 94 Room Air 09/08/16 09:41 96 26 177/94 92 Room Air 09/08/16 09:24 102 09/08/16 09:17 88 18 153/77 94 Room Air 09/08/16 08:20 78 20 165/90 93 Room Air General Appearance: WD/WN Head: normocephalic Neck: supple, no adenopathy Respiratory/Chest: chest non-tender, lungs clear, normal breath sounds Cardiovascular: regular rate, rhythm, no edema, no gallop, no JVD Abdomen: normal bowel sounds, soft, + tenderness Incision(s): clean, dry, intact Extremities: normal range of motion, non-tender, normal inspection Laboratory Results: Results Past 24 Hours Test 09/09/16 06:34 Range/Units White Blood Count 18.27 4.8-10.8 K/uL Red Blood Count 4.62 4.7-6.1 M/uL Hemoglobin 14.4 14.0-18.0 g/dL Hematocrit 41.8 42-52 % Mean Corpuscular Volume 90.5 80-100 fL Mean Corpuscular Hemoglobin 31.2 25-34 pg Mean Corpuscular Hemoglobin Concent 34.4 32-36 g/dl Platelet Count 187 130-400 K/uL Mean Platelet Volume 9.8 7.4-10.4 fL Neutrophils (%) (Auto) 82.3 % Lymphocytes (%) (Auto) 11.3 % Monocytes (%) (Auto) 6.0 % Eosinophils (%) (Auto) 0.0 % Basophils (%) (Auto) 0.1 % Neutrophils # (Auto) 15.05 1.4-6.5 K/uL Lymphocytes # (Auto) 2.06 1.2-3.4 K/uL Monocytes # (Auto) 1.10 0.11-0.59 K/uL Eosinophils # (Auto) 0.00 0-0.5 K/uL Basophils # (Auto) 0.01 0-0.2 K/uL RDW Standard Deviation 45.4 36.4-46.3 fL RDW Coefficient of Variation 13.7 11.5-14.5 % Immature Granulocyte % (Auto) 0.3 % Immature Granulocyte # (Auto) 0.05 0.00-0.02 K/uL Assessment & Plan IMP S/P exp lap repair duodenal ulcer perforation, POD, pt is stable, continue treatment add on flagyl I update information about or finding, and the procedure we did, pt and his understood, I answered all questions, monitor any sipsis signs, NATY drainage minimal, culture sent repeat labs in am, will F/U
[2016-09-09] MEDS ORDERED: ACETAMINOPHEN 650 MG SUPP PR PRN (08:15)
[2016-09-09] MEDS: PANTOprazole INJ 40 MG in SYRINGE 0 ML IV SCH ×2 (08:18→20:33)
[2016-09-09] MEDS ORDERED: METRONIDAZOLE / NSS 500 MG in PREMIXED NSS 100 ML IV SCH (09:00)
--- NOTE | 2016-09-09 09:35 | Anesthesiology Progress Note ---
Anesthesia Post Op Note Date & Time Sep 09, 2016 at 09:34 Vital Signs Pain Intensity: 8.5 Vital Signs Past 12 Hours Date Time Temp Pulse Resp B/P Pulse Ox O2 Delivery O2 Flow Rate FiO2 09/09/16 07:59 36.5 108 16 128/74 90 Room Air 09/09/16 03:27 37.5 102 16 109/67 92 Room Air 09/09/16 00:00 Room Air 09/08/16 23:15 37.4 104 16 110/65 92 Room Air Notes Mental Status: alert / awake / arousable, participated in evaluation Pt Amnestic to Procedure: Yes Nausea / Vomiting: adequately controlled Pain: adequately controlled Airway Patency, RR, SpO2: stable & adequate BP & HR: stable & adequate Hydration State: stable & adequate Anesthetic Complications: no major complications apparent
[2016-09-09 11:18] VITALS: BP 128/70; PULSE 103; TEMP 37.7; O2SAT 94
--- NOTE | 2016-09-09 11:57 | Progress Note ---
Progress Note ID Consult Dictated #[id number] A/P: 1. Peritonitis 2. Leukocytosis 3. Fever -Continue zosyn, follow cultures, currently pending -Blood cultures x 2 now -Stop flagyl, adequate anaerobic coverage with zosyn -Adjust abx based on further micro data -Will follow, thank you
--- NOTE | 2016-09-09 12:24 | INFECT. DISEASE CONSULTATION ---
DATE OF CONSULTATION: 09/09/2016 DATE OF CONSULTATION: 09/09/2016. REQUESTING PHYSICIAN: Dr. Horton. HISTORY OF PRESENT ILLNESS: This is a 66-year-old gentleman who was admitted yesterday after he had sudden onset of epigastric pain which awoke him from sleep yesterday morning. His is present during my examination and does provide some history. She states that he was not feeling well starting on Tuesday. He did have some mild diffuse abdominal pain and poor oral intake; however, he had no nausea, vomiting or diarrhea. He did have a low grade fever of 99 over the past 2 days. He thought he might be coming down with the flu and did not seek medical care for this. Yesterday morning, he awoke with sudden epigastric pain and came to the Emergency Room. A CAT scan was done in the ER showed possible perforated diverticulum versus gastric perforation. Free air was identified. He was also found to have a 4 cm abdominal aortic aneurysm. Gallbladder ultrasound was also done in the Emergency Room and was unremarkable. A chest x-ray was performed as well which showed no evidence of abnormality in the lung; however pneumoperitoneum was identified. He was evaluated by surgery and taken emergently to the operating room for ex-lap. In the OR, he was found to have a perforated duodenal ulcer with pneumoperitoneum and peritonitis. He did undergo surgical repair and washout. A NATY drain was left in place and fluid was sent for culture this morning. He is currently comfortable and denies any pain; however, he had received pain medication just prior to my examination. He states that his pain control is adequate; however his pain increases to an 8/10 before his next dose of pain medication. He denies any fevers or chills, however his current temperature is 37.7. This is his T-max. He denies any nausea or vomiting. He does have an NG tube in place. He does not have an appetite at this time. He denies any chest pain or shortness of breath. He has been ambulating in the hallway both yesterday afternoon and again this morning. He does have pain after he has been ambulating. He has no urinary complaints. All remaining review of systems are reviewed and are negative. ALLERGIES: He has no known drug allergies. FAMILY HISTORY: Noncontributory. SOCIAL HISTORY: Significant for daily tobacco use. He does drink on occasion. He denies any drug use. He is and lives with his . He denies any sick contacts. PAST MEDICAL HISTORY: Significant for COPD. PAST SURGICAL HISTORY: Significant for previous colonoscopies and ex-lap, which was performed yesterday. CURRENT MEDICATIONS: Include Flagyl, Tylenol, Protonix, Zosyn, Zofran and Dilaudid. PHYSICAL EXAMINATION: VITAL SIGNS: Current temperature is 37.7. This is his T-max. Pulse is 103, respiratory rate 18, blood pressure 128/70 and oxygen saturation is 90-94%. GENERAL: He is awake, alert and oriented x3. He is in no distress. HEAD, EYES, EARS, NOSE, AND THROAT: Mucous membranes are moist. Extraocular muscles are intact. NG tube is in place with brown liquid drainage. HEART: Regular without murmur. LUNGS: Clear to auscultation bilaterally; however, he has poor inspiratory effort secondary to incisional pain. ABDOMEN: Abdominal dressing is clean, dry and intact. This was not removed. There is no distention. A NATY drain is in place with seropurulent fluid. EXTREMITIES: There is no lower extremity edema bilaterally. SKIN: Without rash. LABORATORY STUDIES: CBC today reveals a white blood cell count 18.2 up from 13.4 yesterday, hemoglobin is 14.4, hematocrit 41.8, platelets are 187. Chemistry panel reveals a sodium of 138, potassium 3.8, chloride 101, bicarbonate 22, BUN 15, creatinine 1.4, glucose is 134. LFTs are within normal limits. Lactic acid is elevated at 1.8. Urinalysis in the ER was unremarkable. He had 1-5 WBCs with no bacteria. Hep C antibody is negative. Blood cultures are ordered and pending. Fluid culture from his NATY drain is pending as well. Imaging is as reviewed previously. ASSESSMENT AND PLAN: 1. Peritonitis secondary to duodenal ulcer perforation postop day #1 from repair. 2. Leukocytosis, likely multifactorial including infection as well as postop leukocytosis. He will be continued on empiric antibiotics. I will discontinue his metronidazole at this time and keep him on Zosyn pending results of blood and fluid cultures. I did explain to the patient and his that he will receive a course of antibiotics for peritonitis and this will be altered based on culture data once this has returned. We will follow along with you. Thank you for this consultation.
[2016-09-09] MEDS ORDERED: NURSING VERBAL MED ORDER ONE (14:30)
[2016-09-09 15:34] VITALS: BP 154/85; PULSE 109; TEMP 37.1; O2SAT 92
[2016-09-09 22:47] VITALS: BP 157/89; PULSE 111; TEMP 37.6; O2SAT 92
[2016-09-10] MEDS: PIPERACILL/TAZOBAC IV 3.375 GM in DEXTROSE 5% 100ML IV SCH ×4 (00:12→23:39)
[2016-09-10] MEDS: HYDROmorphone INJ 1 MG/ML SYR IV PRN ×3 (00:12→09:48)
[2016-09-10] MEDS: D5W AND 1/2NSS + 20MEQ KCL 1,000 ML IV SCH ×3 (03:32→20:15)
[2016-09-10 07:00] VITALS: BP 139/81; PULSE 105; TEMP 37; O2SAT 92
[2016-09-10 07:07] LABS: BASO % 0.1 %; BASO ABS # 0.01 K/uL (0-0.2); COMPLETE YES; EOS % 0.1 %; HEMATOCRIT 39.9 % (42-52); IG% 0.3 %; LYMPH % 9.9 %; LYMPH ABS # 1.59 K/uL (1.2-3.4); MEAN CELL VOLUME 91.7 fL (80-100); MEAN CORPUSCULAR HEMOGLOBIN 31.3 pg (25-34); MEAN CORPUSCULAR HGB CONC 34.1 g/dl (32-36); MEAN PLATELET VOLUME 10.1 fL (7.4-10.4); MONO % 5.7 %; NEUT % 83.9 %; PLATELET COUNT 181 K/uL (130-400); RED BLOOD COUNT 4.35 M/uL (4.7-6.1)
[2016-09-10 07:39] LABS: BUN/CREATININE RATIO 9.4 (10-20); CALCIUM 8.6 mg/dl (8.5-10.1); CREATININE 1.1 mg/dl (0.60-1.40)
[2016-09-10 07:41] LABS: ALB/GLOB RATIO 0.8 (0.9-2)
[2016-09-10 08:17] VITALS: BP 158/90; PULSE 112; TEMP 37; O2SAT 94
[2016-09-10 08:26] VITALS: O2SAT 94
[2016-09-10] MEDS: PANTOprazole INJ 40 MG in SYRINGE 0 ML IV SCH ×2 (09:45→20:15)
--- NOTE | 2016-09-10 10:55 | Surgery Progress Note ---
Surgery Progress Note Date of Service Sep 10, 2016. Subjective Post OP Day: 2 + feeling well pt is doing better, less abdominal pain, pt walks on hallway, pt denies N/V, not pass gas yet, NGT 275ml, NATY 45ml, Objective Vital Signs: Date Time Temp Pulse Resp B/P Pulse Ox O2 Delivery O2 Flow Rate FiO2 09/10/16 08:26 94 Room Air 09/10/16 08:17 37.0 112 25 158/90 94 Room Air 09/10/16 07:00 37.0 105 20 139/81 92 Room Air 09/10/16 00:15 Room Air 09/09/16 22:47 37.6 111 16 157/89 92 Room Air 09/09/16 15:58 Room Air 09/09/16 15:34 37.1 109 18 154/85 92 Room Air 09/09/16 11:42 Room Air 09/09/16 11:18 37.7 103 18 128/70 94 Nasal Cannula 2.0 General Appearance: WD/WN Head: normocephalic Neck: supple Respiratory/Chest: chest non-tender, lungs clear Cardiovascular: regular rate, rhythm, no edema, no gallop, no JVD Abdomen: normal bowel sounds, soft, + tenderness Incision(s): clean, dry, intact Extremities: normal range of motion, non-tender, normal inspection Laboratory Results: Results Past 24 Hours Test 09/09/16 11:30 09/10/16 06:40 Range/Units Lactic Acid Level 1.0 0.4-2.0 mmol/L White Blood Count 16.10 4.8-10.8 K/uL Red Blood Count 4.35 4.7-6.1 M/uL Hemoglobin 13.6 14.0-18.0 g/dL Hematocrit 39.9 42-52 % Mean Corpuscular Volume 91.7 80-100 fL Mean Corpuscular Hemoglobin 31.3 25-34 pg Mean Corpuscular Hemoglobin Concent 34.1 32-36 g/dl Platelet Count 181 130-400 K/uL Mean Platelet Volume 10.1 7.4-10.4 fL Neutrophils (%) (Auto) 83.9 % Lymphocytes (%) (Auto) 9.9 % Monocytes (%) (Auto) 5.7 % Eosinophils (%) (Auto) 0.1 % Basophils (%) (Auto) 0.1 % Neutrophils # (Auto) 13.52 1.4-6.5 K/uL Lymphocytes # (Auto) 1.59 1.2-3.4 K/uL Monocytes # (Auto) 0.91 0.11-0.59 K/uL Eosinophils # (Auto) 0.02 0-0.5 K/uL Basophils # (Auto) 0.01 0-0.2 K/uL RDW Standard Deviation 46.5 36.4-46.3 fL RDW Coefficient of Variation 13.8 11.5-14.5 % Immature Granulocyte % (Auto) 0.3 % Immature Granulocyte # (Auto) 0.05 0.00-0.02 K/uL Sodium Level 137 136-145 mmol/L Potassium Level 4.0 3.5-5.1 mmol/L Chloride Level 102 98-107 mmol/L Carbon Dioxide Level 26 21-32 mmol/L Anion Gap 9.0 3-11 mmol/L Blood Urea Nitrogen 10 7-18 mg/dl Creatinine 1.10 0.60-1.40 mg/dl Est Creatinine Clear Calc Drug Dose 69.1 ml/min Estimated GFR () 81.2 Estimated GFR (Non- 70.1 BUN/Creatinine Ratio 9.4 10-20 Random Glucose 109 70-99 mg/dl Calcium Level 8.6 8.5-10.1 mg/dl Total Bilirubin 0.6 0.2-1 mg/dl Aspartate Amino Transf (AST/SGOT) 29 15-37 U/L Alanine Aminotransferase (ALT/SGPT) 21 12-78 U/L Alkaline Phosphatase 46 45-117 U/L Total Protein 6.5 6.4-8.2 gm/dl Albumin 2.9 3.4-5.0 gm/dl Globulin 3.6 2.5-4.0 gm/dl Albumin/Globulin Ratio 0.8 0.9-2 Microbiology Results 09/09/16 Blood Culture, Received Pending 09/09/16 Blood Culture, Received Pending Assessment & Plan IMP S/P exp lap repair duodenal ulcer perforation, POD 2, pt is stable, blood culture is pending, I agree with ID treatment plan. continue treatment I update information about or finding, and the procedure we did, pt and his understood, I answered all questions, monitor any sepsis signs, NATY drainage minimal, culture sent repeat labs in am, will F/U IMP S/P exp lap repair duodenal ulcer perforation, POD, pt is stable, continue treatment add on flagyl I update information about or finding, and the procedure we did, pt and his understood, I answered all questions, monitor any sipsis signs, NATY drainage minimal, culture sent repeat labs in am, will F/U
--- NOTE | 2016-09-10 11:20 | Progress Note ---
Subjective Date of Service: Sep 10, 2016. Subjective Pt evaluation today including: conversation w/ patient, conversation w/ family , physical exam, chart review, lab review pt seen in follow up, at bedside, feeling better today. using less pain meds, pain better. no f/c, tmax 37.6, asymptomatic. Has been ambulating in melo without difficulty. estrellita and ngt remain in place. dressing intact. Not hungry, no nausea. no flatus yet. tolerating abx. Estrellita drain culture ngtd, blood cultures pending. wbc improved to 16 today. All remaining ros reviewed and are negative, except as noted. Problem List Medical Problems: (1) Perforated viscus Status: Acute Objective Vital Signs Date Time Temp Pulse Resp B/P Pulse Ox O2 Delivery O2 Flow Rate FiO2 09/10/16 08:26 94 Room Air 09/10/16 08:17 37.0 112 25 158/90 94 Room Air 09/10/16 07:30 Room Air 09/10/16 07:00 37.0 105 20 139/81 92 Room Air 09/10/16 00:15 Room Air 09/09/16 22:47 37.6 111 16 157/89 92 Room Air 09/09/16 15:58 Room Air 09/09/16 15:34 37.1 109 18 154/85 92 Room Air 09/09/16 11:42 Room Air 09/09/16 11:18 37.7 103 18 128/70 94 Nasal Cannula 2.0 Physical Exam General Appearance: WD/WN, no apparent distress Eyes: EOMI Neck: supple Respiratory/Chest: lungs clear Cardiovascular: regular rate, rhythm, no edema Abdomen: soft, + pertinent finding (dressing c/d/i, estrellita with serosang fluid, improved since yesterday) Extremities: non-tender, normal inspection, no pedal edema Neurologic/Psychiatric: alert, oriented x 3 Skin: normal color Laboratory Results Item Value Date Time Gram Stain - Final Resulted 09/09/16802 Drainage-Deep Abdomen Gram Stain - Final Resulted 09/09/16802 Drainage-Deep Abdomen Last 24 Hours Test 09/09/16 11:30 09/10/16 06:40 Lactic Acid Level 1.0 mmol/L White Blood Count 16.10 K/uL Red Blood Count 4.35 M/uL Hemoglobin 13.6 g/dL Hematocrit 39.9 % Mean Corpuscular Volume 91.7 fL Mean Corpuscular Hemoglobin 31.3 pg Mean Corpuscular Hemoglobin Concent 34.1 g/dl Platelet Count 181 K/uL Mean Platelet Volume 10.1 fL Neutrophils (%) (Auto) 83.9 % Lymphocytes (%) (Auto) 9.9 % Monocytes (%) (Auto) 5.7 % Eosinophils (%) (Auto) 0.1 % Basophils (%) (Auto) 0.1 % Neutrophils # (Auto) 13.52 K/uL Lymphocytes # (Auto) 1.59 K/uL Monocytes # (Auto) 0.91 K/uL Eosinophils # (Auto) 0.02 K/uL Basophils # (Auto) 0.01 K/uL RDW Standard Deviation 46.5 fL RDW Coefficient of Variation 13.8 % Immature Granulocyte % (Auto) 0.3 % Immature Granulocyte # (Auto) 0.05 K/uL Sodium Level 137 mmol/L Potassium Level 4.0 mmol/L Chloride Level 102 mmol/L Carbon Dioxide Level 26 mmol/L Anion Gap 9.0 mmol/L Blood Urea Nitrogen 10 mg/dl Creatinine 1.10 mg/dl Est Creatinine Clear Calc Drug Dose 69.1 ml/min Estimated GFR () 81.2 Estimated GFR (Non- 70.1 BUN/Creatinine Ratio 9.4 Random Glucose 109 mg/dl Calcium Level 8.6 mg/dl Total Bilirubin 0.6 mg/dl Aspartate Amino Transf (AST/SGOT) 29 U/L Alanine Aminotransferase (ALT/SGPT) 21 U/L Alkaline Phosphatase 46 U/L Total Protein 6.5 gm/dl Albumin 2.9 gm/dl Globulin 3.6 gm/dl Albumin/Globulin Ratio 0.8 Assessment and Plan (1) Peritonitis Assessment & Plan: will continue zosyn for now, improving. cultures negative so far. will require a course of post op abx, 14 days total, will adjust on culture data if +, if cultures negative and final would suggest transition to po abx once ngt out and he is eating regular diet. will follow cultures and adjust based on further data, maintain zosyn for now. (2) Leukocytosis Assessment & Plan: improving (3) Fever (4) Perforation of duodenal ulcer
[2016-09-10 11:45] VITALS: BP 142/78; PULSE 104; TEMP 37.3; O2SAT 95
[2016-09-10 15:37] VITALS: BP 165/84; PULSE 102; TEMP 36.6; O2SAT 94
[2016-09-10 23:33] VITALS: BP 155/89; PULSE 99; TEMP 37.1; O2SAT 94
[2016-09-11] MEDS: D5W AND 1/2NSS + 20MEQ KCL 1,000 ML IV SCH ×3 (04:07→20:22)
[2016-09-11 06:04] LABS: CREATININE 1.1 mg/dl (0.60-1.40)
--- NOTE | 2016-09-11 07:06 | SURGERY PROGRESS NOTE ---
DATE: 09/11/[address] Horton. Lencho is 3rd postoperative day status post a Khari patch of a perforated duodenal ulcer. He is sitting up at the side of a chair without any real complaints, states he is voiding fine and he is not having any excruciating abdominal pain. His last temperature was 37.1, his pulse 99, respiration 18, blood pressure 155/89, O2 sats 94 on room air. Urine output, he had 350 overnight, so far he is fairly balanced. The Dane drainage is 10 mL, it is serosanguineous and nonbilious. Laboratory glynn this morning is pending, but yesterday his white count was 16.10 with a left shift. Chemistries were noted. At this point, the abdominal dressing is a little saturated with blood, we asked to remove it. We will leave everything as it is, keep the NG tube in and those had 350 of drainage overnight.
[2016-09-11 07:44] VITALS: BP 155/83; PULSE 97; TEMP 37.2; O2SAT 96
[2016-09-11 07:55] LABS: INR 0.9 (0.9-1.1); PROTHROMBIN TIME (PATIENT) 10.1 SECONDS (9.0-12.0)
[2016-09-11] MEDS: PIPERACILL/TAZOBAC IV 3.375 GM in DEXTROSE 5% 100ML IV SCH ×3 (08:11→23:24)
[2016-09-11] MEDS: PANTOprazole INJ 40 MG in SYRINGE 0 ML IV SCH ×2 (08:42→20:24)
[2016-09-11] MEDS: HEPARIN SOD 5000 UNIT/0.5 ML CARP SQ SCH ×2 (09:28→20:28)
[2016-09-11] MEDS ORDERED: NURSING VERBAL MED ORDER ONE (15:00)
[2016-09-11 16:05] VITALS: BP 148/82; PULSE 104; TEMP 37; O2SAT 96
[2016-09-11 22:58] VITALS: BP 155/90; PULSE 106; TEMP 36.8; O2SAT 95
[2016-09-12] MEDS: D5W AND 1/2NSS + 20MEQ KCL 1,000 ML IV SCH ×2 (05:50→15:54)
[2016-09-12 06:56] LABS: CREATININE 1.1 mg/dl (0.60-1.40)
[2016-09-12 08:15] VITALS: BP 149/89; PULSE 99; TEMP 36.7; O2SAT 95
[2016-09-12] MEDS: PIPERACILL/TAZOBAC IV 3.375 GM in DEXTROSE 5% 100ML IV SCH ×2 (08:27→15:53)
[2016-09-12] MEDS: PANTOprazole INJ 40 MG in SYRINGE 0 ML IV SCH ×2 (08:28→21:53)
[2016-09-12] MEDS: HEPARIN SOD 5000 UNIT/0.5 ML CARP SQ SCH ×2 (08:35→21:55)
[2016-09-12 08:57] LABS: BUN/CREATININE RATIO 9.5 (10-20); CALCIUM 8.9 mg/dl (8.5-10.1); CREATININE 1.1 mg/dl (0.60-1.40)
[2016-09-12 09:02] LABS: BASO % 0.1 %; BASO ABS # 0.01 K/uL (0-0.2); COMPLETE YES; HEMATOCRIT 45.2 % (42-52); IG% 0.4 %; LYMPH % 12.3 %; LYMPH ABS # 1.72 K/uL (1.2-3.4); MEAN CELL VOLUME 90.4 fL (80-100); MEAN CORPUSCULAR HEMOGLOBIN 31.6 pg (25-34); MEAN PLATELET VOLUME 10.2 fL (7.4-10.4); MONO % 6.6 %; NEUT % 78.6 %; PLATELET COUNT 289 K/uL (130-400); WHITE BLOOD COUNT 14.01 K/uL (4.8-10.8)
--- NOTE | 2016-09-12 09:39 | SURGERY PROGRESS NOTE ---
DATE: 09/12/[address] Joao Horton. Lencho is fourth postoperative day status post a Khari patch of perforated duodenal ulcer. He is resting comfortably. He said he feels better than he has been. He had a large bowel movement. His last vitals showed a temperature of 36.7, pulse 99, respirations 18, blood pressure 149/89 and O2 sats 95 on room air. I\T\O; he had about 400 drainage out of his Luis-Dietrich drain; it is serous, slightly more concentrated, nonbilious and nonpurulent-appearing. At this point, I would like to leave the drain in and also would like to leave the NG tube in, even though yet about 100 mL out Laboratory this morning were pending. We will check PRP also. At this point, before removing the NG tube, leave it up to Dr. Horton who will come in tomorrow, may want to get a contrast study to visualize that the repair that he has an increased drainage from the Dane drainage. If it persists, we may want to get an amylase on that. LINDAD
[2016-09-12 16:13] VITALS: BP 150/87; PULSE 87; TEMP 37.4; O2SAT 96
[2016-09-12 23:24] VITALS: BP 162/94; PULSE 97; TEMP 36.9; O2SAT 97
[2016-09-13] VITALS (7 sets, daily range): BP systolic 140–164; BP diastolic 78–91; PULSE 76–100; TEMP 36.7–37; O2SAT 94–97
[2016-09-13] MEDS: PIPERACILL/TAZOBAC IV 3.375 GM in DEXTROSE 5% 100ML IV SCH ×4 (00:01→23:55)
[2016-09-13] MEDS: D5W AND 1/2NSS + 20MEQ KCL 1,000 ML IV SCH ×2 (02:25→13:35)
--- NOTE | 2016-09-13 07:28 | Surgery Progress Note ---
Surgery Progress Note Date of Service Sep 13, 2016. Subjective Post OP Day: 5 + feeling well 270ml, NATY 40ml, pt is doing better, passed BM, pt has no abdominal pain,. no N/V , no fever, NGT Objective Vital Signs: Date Time Temp Pulse Resp B/P Pulse Ox O2 Delivery O2 Flow Rate FiO2 09/13/16 00:20 97 147/84 09/13/16 00:00 Nasal Cannula 2.0 09/12/16 23:24 36.9 97 18 162/94 97 Nasal Cannula 2.0 09/12/16 16:13 37.4 87 18 150/87 96 Nasal Cannula 2.0 09/12/16 15:44 Room Air 09/12/16 08:15 36.7 99 18 149/89 95 Room Air 09/12/16 08:10 Room Air General Appearance: WD/WN Head: normocephalic Neck: supple Respiratory/Chest: chest non-tender, lungs clear Cardiovascular: regular rate, rhythm, no edema, no gallop, no JVD Abdomen: normal bowel sounds, non tender, non distended, soft Incision(s): clean, dry, intact Extremities: normal range of motion, non-tender, normal inspection Assessment & Plan IMP S/P exp lap repair duodenal ulcer perforation, POD 5, pt is stable, blood culture is negative, I agree with ID treatment plan. continue treatment D/C NGT clear diet, Change main iv fluid rate to 75ml.h NATY drainage minimal, culture is negative repeat labs in am, will F/U clear liquids IMP S/P exp lap repair duodenal ulcer perforation, POD 2, pt is stable, blood culture is pending, I agree with ID treatment plan. continue treatment I update information about or finding, and the procedure we did, pt and his understood, I answered all questions, monitor any sepsis signs, NATY drainage minimal, culture sent repeat labs in am, will F/U
[2016-09-13] MEDS: PANTOprazole INJ 40 MG in SYRINGE 0 ML IV SCH ×2 (08:24→21:17)
[2016-09-13] MEDS: METOPROLOL TARTRATE 25 MG TAB PO SCH ×2 (08:24→21:18)
[2016-09-13] MEDS: HEPARIN SOD 5000 UNIT/0.5 ML CARP SQ SCH ×2 (08:28→21:20)
--- NOTE | 2016-09-13 14:49 | Progress Note ---
Subjective Date of Service: Sep 13, 2016. Subjective Pt evaluation today including: conversation w/ patient, conversation w/ family , physical exam, chart review, lab review pt seen in follow up, at bedside. tolerated clears today, ngt out, estrellita drain remains in place. Denies pain, +BM, no f/c over weekend. remains on zosyn. blood cultures negative to date x 2, drainage culture negative and final. Feeling much better, asking to go home. All remaining ros reviewed and are negative, except as noted. Problem List Medical Problems: (1) Perforated viscus Status: Acute Objective Vital Signs Date Time Temp Pulse Resp B/P Pulse Ox O2 Delivery O2 Flow Rate FiO2 09/13/16 11:46 36.7 90 18 140/80 96 Room Air 09/13/16 09:49 97 Room Air 09/13/16 08:25 Room Air 09/13/16 07:49 36.8 100 16 140/80 97 Room Air 09/13/16 00:20 97 147/84 09/13/16 00:00 Nasal Cannula 2.0 09/12/16 23:24 36.9 97 18 162/94 97 Nasal Cannula 2.0 09/12/16 16:13 37.4 87 18 150/87 96 Nasal Cannula 2.0 09/12/16 15:44 Room Air Physical Exam General Appearance: WD/WN, no apparent distress Eyes: EOMI Neck: supple Respiratory/Chest: lungs clear, normal breath sounds, no respiratory distress Cardiovascular: regular rate, rhythm, no edema Abdomen: soft Extremities: non-tender, no pedal edema Neurologic/Psychiatric: alert, oriented x 3 Skin: normal color Comments: estrellita drain with min serous fluid Laboratory Results Item Value Date Time Gram Stain - Final Resulted 09/09/16 0803 Drainage-Deep Abdomen Blood Culture - Preliminary Resulted 09/09/16 1157 Blood NO GROWTH TO DATE. Blood Culture - Preliminary Resulted 09/09/16 1157 Blood NO GROWTH TO DATE. Assessment and Plan (1) Peritonitis Assessment & Plan: will continue zosyn for now, improving. cultures negative so far. will require a course of post op abx cultures negative and final would suggest transition to po abx once he is eating regular diet. will follow cultures and adjust based on further data, maintain zosyn for now. would change to Augmentin 875mg po bid with food for additional 7 days post d/c. (2) Leukocytosis Assessment & Plan: improving (3) Fever (4) Perforation of duodenal ulcer
[2016-09-14 00:06] VITALS: BP 157/86; PULSE 77
[2016-09-14 06:51] LABS: BASO % 0.3 %; BASO ABS # 0.03 K/uL (0-0.2); COMPLETE YES; EOS % 4.3 %; IG% 0.6 %; LYMPH % 13.1 %; LYMPH ABS # 1.45 K/uL (1.2-3.4); MEAN CELL VOLUME 89.7 fL (80-100); MEAN CORPUSCULAR HEMOGLOBIN 30.3 pg (25-34); MEAN CORPUSCULAR HGB CONC 33.8 g/dl (32-36); MEAN PLATELET VOLUME 9.8 fL (7.4-10.4); MONO % 13.1 %; NEUT % 68.6 %; PLATELET COUNT 294 K/uL (130-400); RED BLOOD COUNT 4.35 M/uL (4.7-6.1); WHITE BLOOD COUNT 11.05 K/uL (4.8-10.8)
[2016-09-14 07:12] LABS: BUN/CREATININE RATIO 9.5 (10-20); CALCIUM 8.3 mg/dl (8.5-10.1); POTASSIUM 3.7 mmol/L (3.5-5.1)
[2016-09-14 07:14] LABS: ALB/GLOB RATIO 0.7 (0.9-2)
[2016-09-14 08:12] VITALS: BP 119/82; PULSE 94; TEMP 36.7; O2SAT 95
[2016-09-14] MEDS: PANTOprazole INJ 40 MG in SYRINGE 0 ML IV SCH (09:25)
[2016-09-14] MEDS: METOPROLOL TARTRATE 25 MG TAB PO SCH (09:25)
[2016-09-14] MEDS: PIPERACILL/TAZOBAC IV 3.375 GM in DEXTROSE 5% 100ML IV SCH (09:25)
[2016-09-14] MEDS: HEPARIN SOD 5000 UNIT/0.5 ML CARP SQ SCH (09:29)
--- NOTE | 2016-09-14 09:45 | Surgery Progress Note ---
Surgery Progress Note Date of Service Sep 14, 2016. Subjective Post OP Day: + feeling well pt is doing fine, no abdominal pain, no N/V, no fever, he tolerated diet, Objective Vital Signs: Date Time Temp Pulse Resp B/P Pulse Ox O2 Delivery O2 Flow Rate FiO2 09/14/16 08:12 36.7 94 16 119/82 95 Room Air 09/14/16 07:35 Room Air 09/14/16 00:06 77 157/86 09/14/16 00:00 Room Air 09/13/16 23:29 36.9 77 16 164/90 94 Room Air 09/13/16 21:23 76 164/91 09/13/16 16:15 Room Air 09/13/16 15:03 37.0 76 18 155/78 95 Room Air 09/13/16 11:46 36.7 90 18 140/80 96 Room Air 09/13/16 09:49 97 Room Air Physical Exam: NATY drainage (10 ml clear) General Appearance: WD/WN Head: normocephalic Neck: supple, no adenopathy Respiratory/Chest: chest non-tender, lungs clear Cardiovascular: regular rate, rhythm, no edema, no gallop, no JVD Abdomen: normal bowel sounds, non tender, non distended, soft Incision(s): clean, dry, intact Extremities: normal range of motion, non-tender, normal inspection Laboratory Results: Results Past 24 Hours Test 09/14/16 05:36 Range/Units White Blood Count 11.05 4.8-10.8 K/uL Red Blood Count 4.35 4.7-6.1 M/uL Hemoglobin 13.2 14.0-18.0 g/dL Hematocrit 39.0 42-52 % Mean Corpuscular Volume 89.7 80-100 fL Mean Corpuscular Hemoglobin 30.3 25-34 pg Mean Corpuscular Hemoglobin Concent 33.8 32-36 g/dl Platelet Count 294 130-400 K/uL Mean Platelet Volume 9.8 7.4-10.4 fL Neutrophils (%) (Auto) 68.6 % Lymphocytes (%) (Auto) 13.1 % Monocytes (%) (Auto) 13.1 % Eosinophils (%) (Auto) 4.3 % Basophils (%) (Auto) 0.3 % Neutrophils # (Auto) 7.57 1.4-6.5 K/uL Lymphocytes # (Auto) 1.45 1.2-3.4 K/uL Monocytes # (Auto) 1.45 0.11-0.59 K/uL Eosinophils # (Auto) 0.48 0-0.5 K/uL Basophils # (Auto) 0.03 0-0.2 K/uL RDW Standard Deviation 45.5 36.4-46.3 fL RDW Coefficient of Variation 13.8 11.5-14.5 % Immature Granulocyte % (Auto) 0.6 % Immature Granulocyte # (Auto) 0.07 0.00-0.02 K/uL Sodium Level 141 136-145 mmol/L Potassium Level 3.7 3.5-5.1 mmol/L Chloride Level 106 98-107 mmol/L Carbon Dioxide Level 23 21-32 mmol/L Anion Gap 12.0 3-11 mmol/L Blood Urea Nitrogen 10 7-18 mg/dl Creatinine 1.00 0.60-1.40 mg/dl Est Creatinine Clear Calc Drug Dose 76.0 ml/min Estimated GFR () 91.1 Estimated GFR (Non- 78.6 BUN/Creatinine Ratio 9.5 10-20 Random Glucose 89 70-99 mg/dl Calcium Level 8.3 8.5-10.1 mg/dl Total Bilirubin 0.7 0.2-1 mg/dl Aspartate Amino Transf (AST/SGOT) 22 15-37 U/L Alanine Aminotransferase (ALT/SGPT) 31 12-78 U/L Alkaline Phosphatase 53 45-117 U/L Total Protein 6.0 6.4-8.2 gm/dl Albumin 2.5 3.4-5.0 gm/dl Globulin 3.5 2.5-4.0 gm/dl Albumin/Globulin Ratio 0.7 0.9-2 Lipase 219 73-393 U/L Assessment & Plan IMP S/P exp lap repair duodenal ulcer perforation, POD 6, D/C NATY, D/C home today regular diet I gave pt post-op care instruction, F/U 1 week, regular diet IMP S/P exp lap repair duodenal ulcer perforation, POD 5, pt is stable, blood culture is negative, I agree with ID treatment plan. continue treatment D/C NGT clear diet, Change main iv fluid rate to 75ml.h NAYT drainage minimal, culture is negative repeat labs in am, will F/U
[2016-09-14] MEDS ORDERED: RANITAB6 PO (09:47)
[2016-09-14] MEDS ORDERED: CIPR1TAB10 PO (09:51)
[2016-09-14] MEDS ORDERED: METR-163 PO (09:51)
--- NOTE | 2016-09-14 09:54 | Discharge Instructions ---
Discharge Instructions Admission Reason for Admission: Perforation Of Duodenal Ulcer Discharge Discharge Diagnosis / Problem: explarotory laparotomy, repair perforation of duodenal ulcer Discharge Goals Goal(s): Decrease discomfort, Improve function Activity Recommendations Activity Limitations: per Instructions/Follow-up section Lifting Limitations: no more than 25 pounds Exercise/Sports Limitations: gradually increase as tolerated May Resume Sexual Activity: when tolerated Shower/Bathe: may shower/bathe in 3 days Driving or Machine Use: resume 3 days after discharge . Instructions / Follow-Up Instructions / Follow-Up keep the dressing on for 2 days, he can take a shower on 09/16/2016, follow up 1 week, Current Hospital Diet Patient's current hospital diet: Low Fat Diet Discharge Diet Recommended Diet: Regular Diet Procedures Procedures Performed: exploratory laparotomy, repair of perforated duodenal ulcer with omental patch Pending Studies Studies pending at discharge: no Medical Emergencies . Who to Call and When: Medical Emergencies: If at any time you feel your situation is an emergency, please call 911 immediately. . Non-Emergent Contact Non-Emergency issues call your: Primary Care Provider Call Non-Emergent contact if: you have a fever, temperature is above 100.5, your pain is not controlled, your pain is worsening, wound has increased drainage, wound has increased redness . "Provider Documentation" section prepared by Joao Horton. VTE Core Measure Inpt VTE Proph given/why not?: SCD's
[2016-09-14 10:16] VITALS: BP 119/82; PULSE 94; TEMP 36.7; O2SAT 95
--- NOTE | 2016-09-15 10:28 | DISCHARGE SUMMARY ---
ADMITTING DIAGNOSIS: Peritonitis, acute abdominal pain, free air intra-abdominal cavity. POSTOPERATIVE DIAGNOSIS: Duodenal ulcer perforation. PROCEDURE: Exploratory laparotomy, primary repair duodenal ulcer perforation with omental patch. SURGEON: Dr. Joao Horton. DETAILS OF DISCHARGE SUMMARY: This is a 66-year-old patient presented to the ED with acute abdominal pain. The patient had chest x-ray showed free air. intraabdominal cavity, and most likely duodenal ulcer perforation and we took the patient to the OR. We did an exploratory laparotomy and found the patient had duodenal ulcer perforation. We did primary repair with omental patch and otherwise the patient tolerated the procedure well. After the procedure the patient transferred to the recovery room in stable condition and later on the patient transported to the surgical floor. The patient doing fine. Today the patient has no abdominal pain, no nausea, no vomiting. He tolerated the diet this morning. OBJECTIVE: VITAL SIGNS: The temperature is 36.7, the heart rate is 94, the respiratory rate is 16, blood pressure is 119/82. O2 saturation 95% on room air. The patient is alert, awake, oriented x3, no distress. HEAD, EYES, EARS, NOSE, AND THROAT: Within normal limitation. NEUROLOGIC EXAMINATION: Intact. NECK: No JVD. CHEST: Bilateral lung sounds clear. HEART: Normal S1, S2. No murmur. ABDOMEN: Soft, no tenderness, no distention. The incision is dry. No redness. No discharge. Bowel sounds positive. EXTREMITIES: No edema. PLAN: Today is hospital day 6 and the patient wanted to go home. I did give the patient the postop care instructions. The patient understands. I also gave the patient Cipro 500 mg p.o. 2 times a day x3 days, Flagyl 500 mg p.o. 2 times a day x3 days and Zantac 150 mg p.o. 2 times a day for 30 days and we will follow up the patient in 1 week. Also, I instructed the patient the patient should come back to the hospital ER if the patient develops severe abdominal pain, temperature, diarrhea. The patient understands. LINDAD
== END 2016-09-14 14:15 | disposition home or self-care (01) | DRG 329 ==
LOC: ENRESERVTM → ENRESERVDT → C.EDB 06:18 → C.MSN 12:37
PROVIDERS: ADMIT Surgery; ATTEND Surgery
PROC: 0DU907Z Supplement Duodenum with Autologous Tissue Substitute, Open Approach (ICD-10-PCS; principal; 2016-09-08 08:30)
DX: K26.5 Chronic or unspecified duodenal ulcer with perforation (principal); K65.9 Peritonitis, unspecified; R10.9 Unspecified abdominal pain; F17.210 Nicotine dependence, cigarettes, uncomplicated; J44.9 Chronic obstructive pulmonary disease, unspecified

== ENCOUNTER → 2017-08-18 | Outpatient (CLI) | payer BC ==
[~2017-08-18] MED LIST changes: +DIPH-437 PO; -IBUP-103 PO; -TIOTCAP INH
[2017-08-18 11:14] LABS: BASO % 0.6 %; BASO ABS # 0.06 K/uL (0-0.2); EOS % 6.4 %; EOS ABS # 0.69 K/uL (0-0.5); HEMATOCRIT 47.5 % (42-52); HEMOGLOBIN 16.3 g/dL (14.0-18.0); IG# 0.03 K/uL (0.00-0.02); LYMPH % 29.9 %; LYMPH ABS # 3.21 K/uL (1.2-3.4); MEAN CELL VOLUME 93.5 fL (80-100); MEAN CORPUSCULAR HEMOGLOBIN 32.1 pg (25-34); MEAN CORPUSCULAR HGB CONC 34.3 g/dl (32-36); MEAN PLATELET VOLUME 10.5 fL (7.4-10.4); MONO % 8.7 %; MONO ABS # 0.93 K/uL (0.11-0.59); NEUT % 54.1 %; NEUT ABS # 5.82 K/uL (1.4-6.5); PLATELET COUNT 209 K/uL (130-400); RED CELL DISTRIBUTION WIDTH CV 13.7 % (11.5-14.5); WHITE BLOOD COUNT 10.74 K/uL (4.8-10.8)
[2017-08-18 11:30] LABS: ALBUMIN 3.8 gm/dl (3.4-5.0); ALT/SGPT 30 U/L (12-78); BLOOD UREA NITROGEN 22 mg/dl (7-18); CALCIUM 8.9 mg/dl (8.5-10.1); CARBON DIOXIDE 25 mmol/L (21-32); CHOLESTEROL 147 mg/dl (0-200); CREATININE 1.28 mg/dl (0.60-1.40); GLUCOSE 93 mg/dl (70-99); POTASSIUM 4.3 mmol/L (3.5-5.1); SODIUM 138 mmol/L (136-145)
[2017-08-18 11:34] LABS: HEMOGLOBIN A1C 5.8 % (4.5-5.6)
[2017-08-18 11:35] LABS: ALKALINE PHOSPHATASE 71 U/L (45-117); AST/SGOT 20 U/L (15-37); LDL CHOLESTEROL CALCULATED 74 mg/dl; TOTAL PROTEIN 7.6 gm/dl (6.4-8.2)
== END | disposition home or self-care (01) ==
LOC: C.LABBC 07:45
PROVIDERS: ATTEND Internal Medicine
DX: H66.92 Otitis media, unspecified, left ear (principal)

== ENCOUNTER → 2017-11-15 | Outpatient (CLI) | payer BC | END | disposition home or self-care (01) | LOC: C.LABBC 08:51 | PROVIDERS: ATTEND Internal Medicine | DX: R97.20 Elevated prostate specific antigen [PSA] (principal) ==